=== PATIENT | female | born 1985 | race Caucasian/White ===

== ENCOUNTER 2025-07-09 16:11 | Outpatient (CLI) | payer SELFPAY ==
[2025-07-09 19:07] LABS: Hematocrit 39.6 % (37.0-47.0); Hemoglobin 12.7 g/dL (12.2-16.2); Immature Granulocytes % 0.2 %; Mean Corpuscular HGB Conc 32.1 g/dL (31.8-35.4); Mean Corpuscular Hemoglobin 28.3 pg (27.0-31.2); Mean Corpuscular Volume 88.4 fl (81-99); Nucleated Red Blood Cells % 0 %; Platelet Count 247 K/mm3 (142-424); Red Blood Count 4.48 M/mm3 (4.20-5.40); Red Cell Distribution Width-SD 44.1 fL; White Blood Count 9.3 K/mm3 (4.8-10.8)
[2025-07-09 20:13] LABS: Alanine Aminotransferase 31 U/L (12-78); Albumin Level 4.3 g/dl (3.5-5.0); Albumin/Globulin Ratio 1.7 (1.1-1.8); Alkaline Phosphatase 65 U/L (38-126); Anion Gap 10.1 mEq/L (5-15); Aspartate Amino Transferase 28 U/L (14-36); Bilirubin,Total 0.3 mg/dl (0.2-1.3); Blood Urea Nitrogen 15 mg/dl (7-17); Calcium 9.4 mg/dl (8.4-10.2); Carbon Dioxide 28 mmol/L (22.0-30.0); Chloride 105 mmol/L (98-107); Creatinine,Serum 0.80 mg/dl (0.52-1.04); Estimated Glomerular Filt Rate 79 ml/min (>60); GFR (African American) 96 ML/MIN (>60); Globulin 2.6 g/dL (1.3-3.2); Glucose 89 mg/dl (74-100); Potassium 4.1 mmoL/L (3.5-5.1); Sodium 139 mmol/L (136-145); Total Protein,Serum 6.9 g/dl (6.3-8.2)
[2025-07-09 20:44] LABS: Thyroid Stimulating Hormone 0.84 uIU/mL (0.465-4.68)
[2025-07-09 21:04] LABS: Hepatitis C Ab Qual. W/ RFX NEGATIVE (Negative)
--- OUTSIDE RECORDS SUMMARY | 2025-07-10 10:57 | XMS_ITS | Clinical Summary ---
Author Organization [facility] Address [address] [place] [phone] Phone Care Team Providers Care Elementary Supervisor Name Role Phone Unavailable Primary Care Provider Unavailabl e Allergies Active Allergy Reactions Criticality Noted Date Comments Latex Itching Medium 05/03/2022 Medications naproxen (NAPROSYN) 500 mg Oral TabletIndication s:Arthralgia, unspecified joint,Multiple joint complaints Take 1 Tab by mouth 2 times daily (with meals). 60 Tab 7 Active Additional Information Patient not taking.Reason: Other, Reported on 12/12/2022 ergocalciferol (VITAMIN D) 50,000 unit Oral CapsuleIndicatio ns:Vitamin D deficiency Take 1 Cap by mouth once a week. 4 Cap 2 7 Active Additional Information Patient not taking.Reason: Other, Reported on 12/12/2022 diclofenac (VOLTAREN) 75 mg Oral Tablet, Delayed Release (E.C.)Indication s:Chondromalacia patellae, right knee Take 1 Tab by mouth 2 times daily. 20 Tab 1 Active Additional Information Patient not taking.Reason: Pt electing to not take the medication, Reported on 11/24/2022 Active Problems Problem Noted Date Diagnosed Date Calculus of gallbladder with out cholecystitis without obstruction 06/01/2024 Pneumonia of both lungs due to infectious organism, unspecified part of lung 05/30/2024 Acute pneumonia 05/30/2024 Immunizations Immunization Administration Dates Next Due Tdap 11/28/2014 Surgical History Surgery Date Site/Laterality Comments SECTION DENTAL SURGERY LEEP Family History Medical History Relation Name Comments Arthritis Father No Known Problems Mother Relation Name Status Comments Father Mother Social History Tobacco Use Types Packs/Day Years Used Date Smoking Tobacco: Never Smokeless Tobacco: Never Tobacco Cessation:Counseling Given: Not Answered Alcohol Use Standard Drinks/Week Comments No 0 (1 standard drink = 0.6 oz pur e alcohol) [facility] Utilities Answer Date Recorded In the past 12 months has th e electric, gas, oil, or water company threatened to shut off services in your home? No 05/31/2024 Overall Financial Resource Strain (CARDIA) Answe r Date Recorded How hard is it for you to pa y for the very basics like food, housing, medical care, and heating? Not hard at all 05/31/2024 PHQ-2 Answer Date Recorded PHQ-2 Total Score 0 05/31/2024 [facility] [place] [facility] - Occupational Stress Questionnaire Answer Date Recorded Do you feel stress - tense, restless, nervous, or anxious, or unable to sleep at night because your mind is troubled all the time - these days? Not at all 05/31/2024 Exercise Vital Sign Answer Date Recorde d On average, how many days pe r week do you engage in moderate to strenuous exercise (like a brisk walk)? 0 days 05/31/2024 On average, how many minutes do you engage in exercise at this level? 0 min 05/31/2024 Hunger Vital Sign Answer Date Recorded Within the past 12 months, y ou worried that your food would run out before you got the money to buy more. Never true 05/31/20 24 Within the past 12 months, t he food you bought just didn't last and you didn't have money to get more. Never true 05/31/2024 [facility] IP Transportation Answer D ate Recorded In the past 12 months, has l ack of reliable transportation kept you from medical appointments, meetings, work or from getting things needed for daily living? No 05/31/2024 Comments No Sex and Gender Information Value Date Recorded Sex Assigned at Not on file Legal Sex Female 1:40 PM EDT Gender Identity Not on file Sexual Orientation Not on file Obstetrics History Last Filed Vital Signs Vital Sign Reading Time Taken Comments Blood Pressure 130/93 06/01/2024 9:52 AM EDT Pulse 91 06/01/2024 9:52 AM EDT Temperature 36.4 C (97.6 F) 06/01/2024 9:52 AM EDT Respiratory Rate 16 06/01/2024 9:52 AM EDT Oxygen Saturation 97% 06/01/2024 9:52 AM EDT Inhaled Oxygen Concentration - - Weight 93.4 kg (206 lb) 05/30/2024 7:35 PM EDT Height 167.6 cm (5' 6 ) 05/30/2024 7:35 PM EDT Body Mass Index 33.25 05/30/2024 7:35 PM EDT Plan of Treatment Health Maintenance Due Date Last Done Comments Annual Wellness Exam 1988 Hepatitis B Vaccine (1 of 3 - 19+ 3-dose series) 2004 Cervical Cancer Screening 2006 Pap Smear 2006 HPV/Pap Cotest 2015 COVID-19 Vaccine ( - 2023-2 5 season) 2024 Breast Cancer Screening 2025 Influenza Vaccine (#1) 2025 DTaP/TDaP/Td (3 - Td or Tdap) 10/08/2025, 11/28/2014 Meningococcal B Vaccine Aged Out No l onger eligible based on patient's age to complete this topic Pneumococcal Vaccine 0-49 Aged Out No longer eligible based on patient's age to complete this topic Goals Goal Patient Goal Type Associated Problems Recent Progress Patient-Stated? Author Maintain a healthy diet, exercise regularly and maintain an ideal body weight General No Brook Bazzi, Juliana Insurance [employer] [facility] [employer] Advance Directives For more information, please contact: [phone] * Full Code (Latest Code Status on File) Date Activated Date Inactivated Comments 05/31/2024 10:10 AM 06/01/2024 8:30 PM
--- OUTSIDE RECORDS SUMMARY | 2025-07-10 10:57 | XMS_ITS | Encounter Summary ---
Author Organization [facility] Address [address] [place] [address] Care Team Providers Care Machine Milker Name Role Phone None, None Primary Care Provider Unavailmyrna e Ernst Dawson MD Unavailable Carleen Willingham MD Unavailable Riya Mullins MD Unavailable Encounter Details Date Type Department Care Team (Late st Contact Info) Description 04/16/2021 Abstract Obstetrics and Gynecology - [address] [place] [phone] Ernst Dawson MD [address] [place] [address] [place] [id number] Social History Tobacco Use Types Packs/Day Years Used Date Smoking Tobacco: Never Smokeless Tobacco: Never Alcohol Use Standard Drinks/Week Comments No 0 (1 standard drink = 0.6 oz pur e alcohol) Comments No Sex and Gender Information Value Date Recorded Sex Assigned at Not on file Legal Sex Female 2:14 PM EST Gender Identity Not on file Sexual Orientation Not on file documented as of this encounter Functional Status * Are you blind or do you have difficulty seeing, even when wearing glasses? Answer Date of Assessment Author No 10/26/2017 6:26 AM Jessie Lyons RN * Do you have serious difficulty walking or climbing stairs? Answer Date of Assessment Author No 10/26/2017 6:26 AM Jessie Lyons RN * Do you have difficulty dressing or bathing? Answer Date of Assessment Author No 10/26/2017 6:26 AM Jessie Lyons RN * Because of a physical, mental, or emotional condition, do you have difficulty doing errands alone such as a visiting a doctor's office or shopping? Answer Date of Assessment Author No 10/26/2017 6:26 AM Jessie Lyons RN documented as of this encounter Mental Status * Because of a physical, mental, or emotional condition, do you have serious difficulty concentrating, remembering, or making decisions? Answer Entry Date Author No 10/26/2017 6:26 AM Salvatore Lyons RN documented in this encounter Plan of Treatment Not on file documented as of this encounter Visit Diagnoses Not on filedocumented in this encounter Care Teams Machine Milker Relationship Specialty Start Date End Date None, None [address] [place] [address] PCP - General 02/19/14 Ernst Dawson MD [address] [facility] [place] [address] Obstetrics & Gynecology 04/16/21 Carleen Willingham MD [address] [facility] [place] [address] Family Medicine 10/05/21 Riya Mullins MD [address] [place] [address] Family Medicine 11/04/22 documented as of this encounter
--- OUTSIDE RECORDS SUMMARY | 2025-07-10 10:57 | XMS_ITS | Clinical Summary ---
Author Organization [facility] Address [address] [place] [address] Care Team Providers Care Record Producer Name Role Phone None, None Primary Care Provider UnavailErnst Harrison MD Unavailable Carleen Willingham MD Unavailable Riya Mullins MD Unavailable Allergies Active Allergy Reactions Criticality Noted Date Comments Latex Rash 02/19/2014 Nitrofurantoin Monohyd/M-Cryst Nausea And Vomiting 02/09/2019 Other reaction(s): N/V Medications amoxicillin-cla vulanate (AUGMENTIN) 875-125 mg per tabletIndicatio ns:Acute bacterial otitis media, right Take 1 Tablet by mouth 2 times daily. 20 Tablet 2 Active Additional Information Patient not taking.Reported on 03/22/2024 methylPREDNISol one (MEDROL) 4 mg tab (dosepak)Indica tions:Acute bacterial otitis media, right,Acute strain of neck muscle, initial encounter Follow package directions. 21 Tablet 2 Active Additional Information Patient not taking.Reported on 03/22/2024 Active Problems Problem Noted Date Diagnosed Date 39 weeks gestation of 10/25/2017 H/O: section 10/07/2015 05/30/2014 Dysuria 02/19/2014 Immunizations Immunization Administration Dates Next Due Tdap 10/08/2015,11/28/2014 Family History Medical History Relation Name Comments Diabetes Maternal Grandfather Diabetes Maternal Grandmother Ovarian Cancer Maternal Grandmother Cervical Cancer Paternal Grandmother High Blood Pressure Paternal Grandmother Thyroid Disease Sister Relation Name Status Comments Maternal Grandfather Maternal Grandmother Paternal Grandmother Sister Social History Tobacco Use Types Packs/Day Years Used Date Smoking Tobacco: Never Smokeless Tobacco: Never Tobacco Cessation:Counseling Given: Not Answered Alcohol Use Standard Drinks/Week Comments Yes 0 (1 standard drink = 0.6 oz pur e alcohol) occ Comments No Sex and Gender Information Value Date Recorded Sex Assigned at Not on file Legal Sex Female 2:14 PM EST Gender Identity Not on file Sexual Orientation Not on file Last Filed Vital Signs Vital Sign Reading Time Taken Comments Blood Pressure 128/90 03/22/2024 11:58 AM EDT Pulse 74 03/22/2024 11:58 AM EDT Temperature 36.7 C (98 F) 03/22/2024 11:58 AM EDT Respiratory Rate 18 05/04/2022 2:00 AM EDT Oxygen Saturation 98% 03/22/2024 11:58 AM EDT Inhaled Oxygen Concentration - - Weight 104.3 kg (230 lb) 05/04/2022 12:54 AM EDT Height 167.6 cm (5' 6 ) 05/04/2022 12:54 AM EDT Body Mass Index 37.12 05/04/2022 12:54 AM EDT Plan of Treatment Health Maintenance Due Date Last Done Comments Lipid Screening 2003 Cervical Cancer Screening 02/05/20222018, 03/14/2017, 09/28/2016 COVID-19 Vaccine ( season) 2024 Depression Screening 11/28/2024 Influenza Vaccination (#1) 2025 Tetanus Vaccination (Every 10 Years) 10/08/2025 10/08/2015, 11/28/2014 HPV Vaccine Aged Out No longer eligi ble based on patient's age to complete this topic Advance Directives For more information, please contact: [phone] * Full Code (Latest Code Status on File) Date Activated Date Inactivated Comments 10/26/2017 9:42 AM 06/04/2019 10:02 AM * Full Code Date Activated Date Inactivated Comments 10/26/2017 5:43 AM 10/26/2017 9:42 AM * Full Code Date Activated Date Inactivated Comments 10/08/2015 12:34 PM 10/10/2015 5:32 PM * Full Code Date Activated Date Inactivated Comments 10/08/2015 9:53 AM 10/08/2015 12:34 PM Care Teams Record Producer Relationship Specialty Start Date End Date None, None [address] [place] [address] PCP - General 02/19/14 Ernst Dawson MD [address] [facility] [place] [address] Obstetrics & Gynecology 04/16/21 Carleen Willingham MD [address] [facility] [place] [address] [facility] 10/05/21 Riya Mullins MD [address] [place] [address] [facility] 11/04/22
--- OUTSIDE RECORDS SUMMARY | 2025-07-10 10:57 | XMS_ITS | Referral Summary ---
Author Organization [facility] Address [address] [place] [phone] Care Team Providers Care Molecular Biology Director Name Role Phone Pcp, None MD Primary Care Provider [phone] Allergies Active Allergy Reactions Criticality Noted Date Comments Latex Hives High 05/04/2022 Social History Tobacco Use Types Packs/Day Years Used Date Smoking Tobacco: Never Smokeless Tobacco: Never Tobacco Cessation:Counseling Given: Not Answered Alcohol Use Standard Drinks/Week Comments Not Currently 0 (1 standard drink = 0.6 oz pur e alcohol) Food Insecurities Answer Date Recorded Worried about running out of food Not on file 12/20/2023 Food Bought Not on file 12/20/2023 Housing/Utilities Answer Date Recorded Worried about losing home Not on file 2023 Stayed outside house Not on file 12/20/2023 Unable to get utilities Not on file 12/20/19 24 Interpersonal Safety Answer Date Record ed Feel physically or emotionally unsafe where curr ently live Not on file 12/20/2023 Harm by anyone Not on file 12/20/2023 Emotionally Harmed Not on file 12/20/2023 Transportation Answer Date Recorded Worried about transportation Not on file Utilities Answer Date Recorded Worried about losing home Not on file 2023 Stayed outside house Not on file 04/02/2024 Unable to get utilities Not on file 04/02/20 24 Comments No Sex and Gender Information Value Date Recorded Sex Assigned at Not on file Legal Sex Female 1:06 PM EDT Gender Identity Not on file Sexual Orientation Not on file Last Filed Vital Signs Vital Sign Reading Time Taken Comments Blood Pressure 156/88 12/12/2022 7:22 PM EST Pulse 119 12/12/2022 7:22 PM EST Temperature 37.2 C (99 F) 12/12/2022 7:22 PM EST Respiratory Rate 18 12/12/2022 7:22 PM EST Oxygen Saturation 100% 12/12/2022 7:22 PM EST Inhaled Oxygen Concentration - - Weight - - Height - - Body Mass Index - - Plan of Treatment Not on file Care Teams Molecular Biology Director Relationship Specialty Start Date End Date Pcp, None, PCP - General Internal Medicine 05/04/22
--- OUTSIDE RECORDS SUMMARY | 2025-07-10 10:57 | XMS_ITS | Clinical Summary ---
Author Organization [facility] Address [address] [place] [phone] Care Team Providers Care Ground Water Pump Installer Name Role Phone Pcp, None MD Primary Care Provider [phone] Allergies Active Allergy Reactions Criticality Noted Date [...] Mass Index - - Plan of Treatment Health Maintenance Due Date Last Done Comments Pap Screening 2006 HPV (1 - 3-dose SCDM series) 2012 Influenza Vaccine (#1) 2025 DTap,Tdap,and Td (3 - Td or Tdap) 10/08/2025 10/08/2015, 11/28/2014 RSV Vaccine (60+ or ) (1 - 1-dose 75+ series) 2060 Meningococcal conjugate carlos nt 4 (MCV4) Aged Out No longer eligible b ased on patient's age to complete this topic Pneumococcal 0-49 Aged Out No longer eligible based on patient's age to complete this topic RSV Immunization (<20 months) Aged Out No longer eligible based on patient's age to complete this topic Care Teams Ground Water Pump Installer Relationship Specialty Start Date End Date Pcp, MD Wilder PCP - General Internal Medicine 05/04/22
--- OUTSIDE RECORDS SUMMARY | 2025-07-10 10:57 | XMS_ITS | Clinical Summary ---
Author Organization [facility] [place] [address] Care Team Providers Care Fly Frame Tender Name Role Phone Nonstaff, [facility] Primary Care Provider Unavailab le Allergies No known active allergies Medications omeprazole (PRILOSEC) [address]-capsule Take 1 Cap by mouth daily 30 Cap 01/21/2024 Active dicyclomine (BENTYL) 10 mg capsule Take 1 Cap by mouth three times a day before meals 21 Cap 01/21/2024 Active Social History Tobacco Use Types Packs/Day Years Used Date Smoking Tobacco: Never Passive Smoke Exposure: Never Smokeless Tobacco: Never Tobacco Cessation:Counseling Given: Not Answered Alcohol Use Standard Drinks/Week Comments Not Currently 0 (1 standard drink = 0.6 oz pur e alcohol) Comments No Sex and Gender Information Value Date Recorded Sex Assigned at Not on file Legal Sex Female 12:52 AM EST Gender Identity Not on file Sexual Orientation Not on file Last Filed Vital Signs Vital Sign Reading Time Taken Comments Blood Pressure 127/74 01/21/2024 3:00 AM EST Pulse 63 01/21/2024 3:00 AM EST Temperature 36.6 C (97.8 F) 01/21/2024 12:57 AM EST Respiratory Rate 14 01/21/2024 3:00 AM EST Oxygen Saturation 95% 01/21/2024 3:00 AM EST Inhaled Oxygen Concentration - - Weight 104.3 kg (230 lb) 01/21/2024 1:30 AM EST Height 167.6 cm (5' 6 ) 01/21/2024 1:30 AM EST Body Mass Index 37.12 01/21/2024 1:30 AM EST Plan of Treatment Health Maintenance Due Date Last Done Comments HIV Screening 2000 HPV Vaccines (1 - 3-dose series) 2000 Breast Cancer Screening 2003 Hepatitis C Screening 2003 DTaP/Tdap/Td Vaccines (1 - Tdap) 2004 Hepatitis B Vaccines (1 of 3 - 19+ 3-dose series) 2004 Pap Smear 2006 Cervical Cancer Screening 2010 Co-Test / HPV 2010 COVID-19 Vaccines (1 - 2023- season) 2024 Influenza Vaccines 06/28/2025 HIB Vaccines Aged Out No longer eligi ble based on patient's age to complete this topic HISTORICAL VIEW: MMR Vaccines Discontinued HISTORICAL VIEW: Varicella Vaccines Discontinued Hepatitis A Vaccines Aged Out No long er eligible based on patient's age to complete this topic IPV Vaccines Aged Out No longer eligi ble based on patient's age to complete this topic Meningococcal Vaccines Aged Out No lo nger eligible based on patient's age to complete this topic Pneumococcal Vaccines: Pedia trics (0 to 5 Years) and At-Risk Patients (6 to 49 Years) Aged Out No longer eligi ble based on patient's age to complete this topic Rotavirus Vaccines Aged Out No longer eligible based on patient's age to complete this topic Insurance MED[place]ID [place] Care Teams Fly Frame Tender Relationship Specialty Start Date End Date Peter Goodman MD PCP - General 01/21/24
[2025-07-11 10:22] LABS: Hepatitis B Surface Antigen Negative (Negative)
== END 2025-07-09 23:59 | disposition home or self-care (01) ==
LOC: LAB.DROPOF 07-10 10:47
PROVIDERS: PCP Nurse Practitioner; Visit Provider Nurse Practitioner
DX: F41.9 Anxiety disorder, unspecified (principal); Z11.59 Encounter for screening for other viral diseases
CPT/HCPCS: 80053; 84443; 85025; 86803; 87340; 87389